=== PATIENT | female | born 1975 | race Caucasian/White ===

== ENCOUNTER 2022-08-12 22:22 | Emergency (ER) | payer OTHER ==
[2022-08-12 22:30] VITALS: BP 132/88; PULSE 81; RESP 20; TEMP 97.9; BMI 28.8
[2022-08-12] MEDS ORDERED: oxyCODONE HCL 5 MG TABLET PO ONE (23:59)
[2022-08-13] MEDS ORDERED: oxyCODONE HCL 5 MG TABLET ONE (00:03)
[2022-08-13 00:48] LABS: BASO % 1.2 % (0-2.0); EOS % 6.8 % (0-4.5); HEMATOCRIT 40.6 % (32.4-45.2); HEMOGLOBIN 13.7 GM/dL (10.7-15.3); LYMPH % 22.1 % (8-40); MCH 32.6 pg (25.7-33.7); MCHC 33.8 g/dl (32.0-36.0); MEAN CELL VOLUME 96.4 fl (80-96); MEAN PLT VOLUME 9.8 fl (7.5-11.1); MONO % 10.6 % (3.8-10.2); NEUT % 59.3 % (42.8-82.8); PLATELET COUNT 223 10^3/uL (134-434); RBC 4.21 M/mm3 (3.60-5.2); RDW 13.6 % (11.6-15.6)
[2022-08-13 01:07] LABS: INR 1.03 (0.83-1.09); PROTHROMBIN TIME (PATIENT) 11.9 SEC (9.7-13.0)
[2022-08-13 01:08] LABS: ALBUMIN 3.7 g/dl (3.4-5.0); BLOOD UREA NITROGEN 12.3 mg/dL (7-18); CALCIUM 8.8 mg/dL (8.5-10.1)
[2022-08-13 01:10] LABS: ACTIVATED PTT 29.6 SECONDS (25.2-36.5)
[2022-08-13 01:11] LABS: CREATININE 0.7 mg/dL (0.55-1.3)
[2022-08-13 01:13] LABS: BILIRUBIN,TOTAL 0.3 mg/dL (0.2-1); TOT PROT 6.6 g/dl (6.4-8.2)
== END 2022-08-13 04:37 | disposition home or self-care (01) ==
LOC: JER 22:22
DX: M79.604 Pain in right leg (principal); R60.0 Localized edema; R20.0 Anesthesia of skin; S80.12XA Contusion of left lower leg, initial encounter; X58.XXXA Exposure to other specified factors, initial encounter
CPT/HCPCS: 36415; 80053; 85025; 85610; 85730; 93970-TC; 99284-25